=== PATIENT | male | born 1975 | race American Indian/Alaskan Native ===

== ENCOUNTER 2018-11-07 12:20 | Inpatient (IN) | payer MEDICAID ==
[2018-11-07 13:52] LABS: BASO % 0.7 % (0.0-2.0); EOS % 0.6 % (0.0-4.0); HEMOGLOBIN 13.7 g/dL (12.0-18.0); LYMPH # 1.2 K/uL (1.0-4.3); LYMPH % 16.9 % (20.0-40.0); MEAN CELL VOLUME 87.7 fL (80.0-94.0); MEAN CORPUSCULAR HEMOGLOBIN 28.8 pg (27.0-31.0); MEAN CORPUSCULAR HGB CONC 32.9 g/dL (33.0-37.0); MEAN PLATELET VOLUME 8.2 fL (7.2-11.7); MONO # 0.3 K/uL (0.0-0.8); MONO % 4.6 % (0.0-10.0); NEUT # 5.6 K/uL (1.8-7.0); NEUT % 77.2 % (50.0-75.0); NRBC % 0.1 % (0.0-2.0); RBC 4.77 Mil/uL (4.40-5.90); RED CELL DISTRIBUTION WIDTH 14.4 % (11.5-14.5); WHITE BLOOD COUNT 7.3 K/uL (4.8-10.8)
[2018-11-07 13:56] LABS: SQUAMOUS EPITHIAL < 1 /hpf (0-5); URINE BILIRUBIN NEGATIVE (NEGATIVE); URINE BLOOD NEGATIVE (NEGATIVE); URINE CLARITY Clear (Clear); URINE COLOR Amber (YELLOW); URINE GLUCOSE (UA) NORMAL (Normal); URINE LEUKOCYTE ESTERASE NEG Leu/uL (Negative); URINE PROTEIN 2+ mg/dL (NEGATIVE)
[2018-11-07 14:09] LABS: ALB/GLOB RATIO 1.3 (1.0-2.1); ALBUMIN 4.4 g/dL (3.5-5.0); ALT/SGPT 46 U/L (21-72); AST/SGOT 43 U/L (17-59); BLOOD UREA NITROGEN 22 mg/dL (9-20); CALCIUM 9.1 mg/dl (8.6-10.4); GFR NON-AFRICAN AMERICAN 55
[2018-11-07 14:18] LABS: CK-MB 2.65 ng/mL (0.0-3.38)
[2018-11-07 14:22] LABS: BARBITURATES, UR NEGATIVE (NEGATIVE); BENZODIAZEPINES, UR NEGATIVE (NEGATIVE); PHENCYCLIDINE, UR NEGATIVE (NEGATIVE)
[2018-11-07 14:24] LABS: OPIATES, UR POSITIVE (NEGATIVE)
--- NOTE | 2018-11-07 14:35 | C.PDOC ---
History Of Present Illness 43 y/o male presents to the ED for psychiatric evaluation secondary to having suicidal ideation. Patient reports hearing voices that are telling him to kill himself. He denies any suicidal plan or homicidal ideation. Patient also com plains of right shoulder pain, which is non-radiating and intermittent. Pain worse with movement of right arm. He denies any nausea, vomiting, diaphoresis, SOB, or dizziness. Time Seen by Provider: 11/07/18 13:12 Chief Complaint (Nursing): Chest Pain History Per: Patient History/Exam Limitations: no limitations Onset/Duration Of Symptoms: Days Current Symptoms Are (Timing): Still Present Past Medical History Reviewed: Historical Data, Nursing Documentation, Vital Signs Vital Signs: Last Vital Signs Temp 98.6 F 11/07/18 12:38 Pulse 77 11/07/18 12:38 Resp 17 11/07/18 12:38 BP 174/110 H 11/07/18 12:38 Pulse Ox 98 11/07/18 12:38 - Medical History PMH: Depression, HTN Family History: States: No Known Family Hx - Social History Hx Alcohol Use: No Hx Substance Use: Yes - Immunization History Hx Tetanus Toxoid Vaccination: No Hx Influenza Vaccination: No Hx Pneumococcal Vaccination: No Review Of Systems Except As Marked, All Systems Reviewed And Found Negative. Constitutional: Negative for: Fever, Chills, Sweats Eyes: Negative for: Vision Change Cardiovascular: Negative for: Chest Pain Respiratory: Negative for: Shortness of Breath, SOB with Excertion Gastrointestinal: Negative for: Nausea, Vomiting, Abdominal Pain Musculoskeletal: Positive for: Shoulder Pain (right anterior) Neurological: Negative for: Weakness, Numbness, Dizziness Psych: Positive for: Suicidal ideation (without plan,no homicidal ideation), Other (Auditory hallucinations) Physical Exam - Physical Exam Additional Physical Exam Comments: Constitutional: No acute distress. Head: Normocephalic. Atraumatic. Eyes: PERRL. ENT: Moist mucous membranes. Neck: Supple. Cardiovascular: Regular rate. Radial pulse 2+ bilaterally. Respiratory: Clear to auscultation bilaterally. GI: Soft. Nontender. Nondistended. Back: No CVA tenderness. Musculoskeletal: Anterior right shoulder tenderness, with reproducible pain on active and passive ROM of right arm. Skin: No rash. Neurologic: Alert, no focal deficit. ED Course And Treatment - Laboratory Results Result Diagrams: 11/07/18 13:45 11/07/18 13:45 ECG: Interpreted By Me, Viewed By Me ECG Rhythm: Sinus Rhythm Interpretation Of ECG: lateral T wave inversions, no ST elevations Rate From EC O2 Sat by Pulse Oximetry: 98 (RA) Pulse Ox Interpretation: Normal - Other Rad CXR X-Ray: Read By Radiologist Interpretation: Accession No. : [id number]. Patient Name / ID : TORIE MCARTHUR / [id number]. Exam Date : 11/07/2018 13:59:00 ( Approved ). Study Comment : Sex / Age : M / 43Y. Creator : Christianne Richards MD. Dictator : Christianne Richards MD. District Fire Management Officer : Assistant Professor Of Mathematics : Christianne Richards MD. Approver2 : Report Date : 11/07/2018 14:52:16. My Comment : . HISTORY: psych. COMPARISON: None available. TECHNIQUE: Chest PA and lateral. FINDINGS: Examination limited by habitus. LUNGS: No focal consolidation. Please note that chest x-ray has limited sensitivity for the detection of pulmonary masses. PLEURA: No significant pleural effusion identified. No definite pneumothorax . CARDIOVASCULAR: Cardiomegaly. Ectatic aorta. No atherosclerotic calcification present. OSSEOUS STRUCTURES: No acute osseous abnormality identified. VISUALIZED UPPER ABDOMEN: Unremarkable. OTHER FINDINGS: None. IMPRESSION: No focal consolidation identified. Findings as above. Right shoulder x-ray X-Ray: Read By Radiologist Interpretation: Accession No. : [id number]. Patient Name / ID : TORIE MCARTHUR / [id number]. Exam Date : 11/07/2018 14:04:06 ( Approved ). Study Comment : Sex / Age : M / 43Y. Creator : Marii Menendez V. Dictator : Marii Menendez V. District Fire Management Officer : Assistant Professor Of Mathematics : Dr. Joann Stephens Marii V. Approver2 : Report Date : 11/07/2018 15:05:25. My Comment : . Date of service: 11/07/2018. PROCEDURE: Radiographs of the Right Shoulder. HISTORY: R shoulder pain. COMPARISON: No prior. FINDINGS: BONES: No definitive fracture seen. The appearance to the inferior glenoid rim probably relates to artifact. JOINTS: No significant appearing glenohumeral or acromioclavicular joint arthrosis seen. Projection somewhat limited. SOFT TISSUES: Normal. OTHER FINDINGS: None. IMPRESSION: No suspect fracture. No dislocation. No definitive arthrosis noted. Medical Decision Making Medical Decision Making: Initial Plan: --Blood work --UA --Right shoulder x-ray --Chest x-ray --Placed on 1:1 observation --Awaiting crisis eval Disposition - Disposition Disposition: HOSPITALIZED Disposition Time: 15:20 Condition: FAIR - Clinical Impression Clinical Impression: Schizoaffective disorder - Scribe Statement The provider has reviewed the documentation as recorded by the Scribe Ngoc Ding Provider Attestation: All medical record entries made by the Scribe were at my direction and personally dictated by me. I have reviewed the chart and agree that the record accurately reflects my personal performance of the history, physical exam, medical decision making, and the department course for this patient. I have also personally directed, reviewed, and agree with the discharge instructions and disposition.
--- NOTE | 2018-11-07 14:56 | RAD ---
HISTORY: psych COMPARISON: None available. TECHNIQUE: Chest PA and lateral FINDINGS: Examination limited by habitus. LUNGS: No focal consolidation. Please note that chest x-ray has limited sensitivity for the detection of pulmonary masses. PLEURA: No significant pleural effusion identified. No definite pneumothorax . CARDIOVASCULAR: Cardiomegaly. Ectatic aorta. No atherosclerotic calcification present. OSSEOUS STRUCTURES: No acute osseous abnormality identified. VISUALIZED UPPER ABDOMEN: Unremarkable. OTHER FINDINGS: None. IMPRESSION: No focal consolidation identified. Findings as above.
--- NOTE | 2018-11-07 15:09 | RAD ---
Date of service: 11/07/2018 PROCEDURE: Radiographs of the Right Shoulder HISTORY: R shoulder pain COMPARISON: No prior. FINDINGS: BONES: No definitive fracture seen. The appearance to the inferior glenoid rim probably relates to artifact JOINTS: No significant appearing glenohumeral or acromioclavicular joint arthrosis seen. Projection somewhat limited. SOFT TISSUES: Normal. OTHER FINDINGS: None. IMPRESSION: No suspect fracture. No dislocation. No definitive arthrosis noted.
--- NOTE | 2018-11-08 07:13 | CARD ---
APPROVED REPORT Date of service: 11/07/2018 EKG Measurement Heart [id number] CT [id number] <Conclusion> Normal sinus rhythm Possible Left atrial enlargement Left ventricular hypertrophy T wave abnormality, consider lateral ischemia Abnormal ECG
[2018-11-08] MEDS ORDERED: Aluminum Hydroxide/Magnesium Hydroxide Susp (30 mL) PO PRN (10:33)
--- NOTE | 2018-11-08 10:33 | PCM.PSYCH ---
Initial Psychiatric Evaluation - Initial Psychiatric Evaluation Type of Admission: Voluntary Legal Status: Capacity Chief Complaint (in patient's own words): Was feeling depressed and suicidal..' History of Present Illness and Precipitating Events: This is a 43 years old -[place] male, who came to the ED with depressed mood and suicidal ideation with plan to jump in front of the train. Patient reports history of few inpatient psychiatric hospitalizations, he was last discharged from [facility] last year. As per the patient soon after discharge he stopped taking medication and relapsed on heroin. He reports of sniffing almost 10 bags of heroin daily along with 2-3 bags of cocaine. Patient reports that yesterday he became increasingly depressed and suicidal ideation so he came to the hospital to get help. He reports depressed mood, feelings of hopelessness and helplessness, poor sleep and poor appetite. He also reports at times irritability and agitation but denies any manic symptoms. He reports withdrawal symptoms including nausea, headaches, cramps, joint pains, sweating and anxiety. He also reports of hearing voices or hallucinations command type to kill himself and reports paranoia. Past medical history HTN Current Medications: Active Medications Generic Name Dose Route Start Last Admin Trade Name Freq PRN Reason Stop Dose Admin Clonidine HCl 0.1 mg 11/07/18 21:17 11/08/18 06:45 Catapres PO 0.1 mg Q6 PRN Administration Systolic Blood Pressure Pneumococcal Polyvalent Vaccine 0.5 ml 11/09/18 10:00 Pneumovax 23 Vaccine IM 11/09/18 10:01 .ONCE ONE Past Psychiatric History - Past Psychiatric History Previous Treatment History: Inpatient Pertinent Medical Hx (Current Medical&Sleep Prob, Allergies): Allergies Allergy/AdvReac Type Severity Reaction Status Date / Time No Known Allergies Allergy Unverified 11/07/18 12:43 Lisinopril [Zestril] 10 mg PO DAILY 11/07/18 amLODIPine [Norvasc] 10 mg PO DAILY 11/07/18 Review of Systems - Review of Systems All systems: reviewed and no additional remarkable complaints except - Psychiatric Psychiatric: Anxiety, Auditory Hallucinations, Irritability, Mood Swings, Suicidal Ideation Mental Status Examination - Personal Presentation Personal Presentation: Looks stated age - Affect Affect: Constricted, Depressed - Motor Activity Motor Activity: Calm - Reliability in Providing Information Reliability in Providing Information: Fair - Speech Speech: Organized - Mood Mood: Depressed, Anxious - Formal Thought Process Formal Thought Process: Hallucinations, Delusions - Hallucinations/Delusions Hallucinations: Auditory Delusions: Persecution - Obsessions/Compulsions Obsessions: No Compulsions: No - Cognitive Functions Orientation: Person, Place, Situation, Time Sensorium: Alert Attention/Concentration: Attentive Abstract Thinking: [place] Estimate of Intelligence: Below average Judgement: Imparied, as evidence by: Poor judgement, Imparied, as evidence by: Lack of insight into illness - Risk Risk: Suicidal, Withdrawal, Diminished functioning - Limitations Limitations: Living alone DSM 5 DX - DSM 5 DSM 5 Diagnosis: Bipolar depressed severe with psychotic symptoms Opioid use disorder severe Opiate withdrawal Cocaine use disorder severe - Recommended/Plan of Treatment Treatment Recommendations and Plan of Treatment: Bipolar depressed severe with psychotic symptoms Opioid use disorder severe Opiate withdrawal Cocaine use disorder severe CBT Psychoeducation Supportive therapy and group therapy Methadone taper Trazodone 50 mg p.o. nightly Hydroxyzine 25 g p.o. every 6 hours as needed Cymbalta 20 g daily
--- NOTE | 2018-11-08 15:21 | PCM.BM ---
<Jericho Dunlap - Last Filed: 11/08/18 15:18> Treatment Plan Problems - Problems identified on initial assessmt Auditory hallucinations Date Initiated: 11/07/18 Time Initiated: 19:00 Assessment reference: NA Status: Active Subtance Abuse Date Initiated: 11/07/18 Time Initiated: 19:00 Assessment reference: NA Status: Active Treatment assets and liabiliti Patient Assests: educated, self-reliant, ADL independent, negotiates basic needs, cognitively intact Patient Liabilities: financial problems (Unemployed), substance abuse (Heroin Abuse), medical problems (Hypertension) - Milieu Protocol Maintain good personal hygiene: daily Encourage regular showers, daily Remind patient to perform daily oral care, every shift Assist patient to perform ADL's Conduct patient checks and document Observation sheet: Q15 minutes (For safety) Maintain personal safety: every shift Educate patient to report safety concerns to staff, every shift Monitor environment for contraband/sharps Medication safety: Monitor for expected outcome, potential side effects: every shift, Assess barriers to learning: every shift, Assess readiness for medication education: every shift <Jill Damico - Last Filed: 11/08/18 15:31> Family Contact Family involvement: Famliy/SO not involved - Goals for Treatment Patient goals for treatment: "I want to go to outpatient." Discharge/Continuing Care - Education Needs Education Needs: Patient Medication, Patient Coping Skills - Discharge Discharge Criteria: Tolerates medication w/o severe side effects, Reduction of target symptoms Discharge to:: Home - Treatment Team Participation Discussed with Family/SO: No Was Patient/Family/SO present at Treatment Team Meeting: Yes
--- NOTE | 2018-11-09 08:21 | PCM.PYCHPN ---
Mental Status Examination - Cognitive Function Orientation: Person, Place, Situation, Time - Mood Mood: Depressed, Anxious - Affect Affect: Constricted, Depressed - Formal Thought Process Formal Thought Process: Hallucinations, Delusions - Homicidal Ideation Homicidal Ideation: No Goal/Treatment Plan - Goal/Treatment Plan Progress Toward Problem(s) and Goals/Treatment Plan: Bipolar depressed severe with psychotic region Opioid use disorder severe Opiate withdrawal Cocaine use disorder severe CBT Psychoeducation Supportive therapy and group therapy Methadone taper Trazodone 50 mg p.o. nightly Hydroxyzine 25 g p.o. every 6 hours as needed Cymbalta 20 g daily
[2018-11-09] MEDS ORDERED: Pneumococcal 23-Valent Vaccine IM ONE (10:00)
[2018-11-10 06:42] VITALS: O2SAT 97
[2018-11-11] MEDS ORDERED: Influenza Vaccine 60 MCG/0.5 ML SYR (3 yr & up) IM ONE (10:00)
--- NOTE | 2018-11-13 00:01 | PCM.PYCHPN ---
Psychiatric Progress Note - Psychiatric Progress Note Patient seen today, length of contact: 15 min Patient Chief Complaint: I am still feeling down.' Problems Identified/Issues Discussed: Patient was seen and evaluated, chart reviewed and discussed with the staff. Patient still reports depressed mood and at times feelings of hopelessness and helplessness. He still reports poor sleep and appetite. He reports withdrawal symptoms including sweating, cramps, headaches and nausea. He reports some improvement in his paranoia. He is taking medication but denies any side effects. Supportive therapy was given Medication Change: Yes Medical Record Reviewed: Yes Mental Status Examination - Cognitive Function Orientation: Person, Place, Situation, Time Memory: Intact Attention: WNL Concentration: Poor Association: WNL Fund of Knowledge: Poor - Mood Mood: Depressed, Anxious - Affect Affect: Constricted, Depressed - Speech Speech: Soft - Formal Thought Process Formal Thought Process: Hallucinations, Delusions - Suicidal Ideation Suicidal Ideation: No - Homicidal Ideation Homicidal Ideation: No Goal/Treatment Plan - Goal/Treatment Plan Need for Continued Stay: Severe functional impairment Progress Toward Problem(s) and Goals/Treatment Plan: Bipolar depressed severe with psychotic symptoms Opioid use disorder severe Opiate withdrawal Cocaine use disorder severe CBT Psychoeducation Supportive therapy and group therapy Methadone taper Trazodone 50 mg p.o. nightly Hydroxyzine 25 g p.o. every 6 hours as needed Cymbalta 20 g daily - Smoking Cessation Smoking Cessation Initiated: No
[2018-11-13 06:51] VITALS: RESP 18; TEMP 97.6
[2018-11-14 06:37] VITALS: BP 152/93; PULSE 65
--- NOTE | 2018-11-14 13:27 | PCM.PYCHDC ---
Mental Status Examination - Mental Status Examination Orientation: Person, Place, Situation, Time Memory: Intact Mood: Neutral Affect: Constricted Speech: Soft Attention: WNL Concentration: WNL Association: WNL Fund of Knowledge: WNL Formal Thought Process: No Impairment Description of patient's judgement and insight: good, fair Psychotic Thoughts and Behaviors: denies any AVH Suicidal Ideation: No Current Homicidal Ideation?: No Discharge Summary - Discharge Note Reason for Hospitalization: This is a 43 years old -[place] male, who came to the ED with depressed mood and suicidal ideation with plan to jump in front of the train. Patient reports history of few inpatient psychiatric hospitalizations, he was last discharged from [facility] last year. As per the patient soon after discharge he stopped taking medication and relapsed on heroin. He reports of sniffing almost 10 bags of heroin daily along with 2-3 bags of cocaine. Patient reports that yesterday he became increasingly depressed and suicidal ideation so he came to the hospital to get help. He reports depressed mood, feelings of hopelessness and helplessness, poor sleep and poor appetite. He also reports at times irritability and agitation but denies any manic symptoms. He reports withdrawal symptoms including nausea, headaches, cramps, joint pains, sweating and anxiety. He also reports of hearing voices or hallucinations command type to kill himself and reports paranoia. Consultations:: List each consultation separately and include: 1. Reason for request. 2. Findings. 3. Follow-up Summary of Hospital Course include:: 1. Description of specific treatment plan utilized for patients during their course of treatmen. 2. Summarize the time- course for resolution of acute symptoms and/or regressed behaviors. 3. Describe issues identified and worked on during hospitalization. 4. Describe medication utilized. 5. Describe medical problems identified and treated. 6. Reassessment of suicide risk Summary of Hospital Course: This is a 43 years old -[place] male, who came to the ED with depressed mood and suicidal ideation with plan to jump in front of the train. Patient reports history of few inpatient psychiatric hospitalizations, he was last discharged from [facility] last year. As per the patient soon after discharge he stopped taking medication and relapsed on heroin. He reports of sniffing almost 10 bags of heroin daily along with 2-3 bags of cocaine. Patient reports that yesterday he became increasingly depressed and suicidal ideation so he came to the hospital to get help. He reports depressed mood, feelings of hopelessness and helplessness, poor sleep and poor appetite. He also reports at times irritability and agitation but denies any manic symptoms. He reports withdrawal symptoms including nausea, headaches, cramps, joint pains, sweating and anxiety. He also reports of hearing voices or hallucinations command type to kill himself and reports paranoia. Past medical history HTN - Final Diagnosis (DSM 5) Condition upon Discharge: FAIR Disposition: HOME/ ROUTINE Follow-up Treatment Plan: Bipolar depressed severe with psychotic symptoms Opioid use disorder severe Opiate withdrawal Cocaine use disorder severe CBT Psychoeducation Supportive therapy and group therapy Methadone taper Trazodone 50 mg p.o. nightly Hydroxyzine 25 g p.o. every 6 hours as needed Cymbalta 20 g daily Prescriptions/Medication Reconciliation: DULoxetine [Cymbalta] 60 mg PO DAILY #30 ecc fluPHENAZine [Prolixin] 5 mg PO BID #60 tab traZODone [Desyrel] 100 mg PO HS PRN #30 tab PRN Reason: Insomnia
== END 2018-11-14 14:15 | disposition home or self-care (01) | DRG 430 ==
LOC: C.ER 12:20 → C.5E 18:16
PROVIDERS: ADMIT Psychiatry & Neurology Psychiatry; ATTEND Psychiatry & Neurology Psychiatry
PROC: GZHZZZZ Group Psychotherapy (ICD-10-PCS; principal; 2018-11-07)
PROC: GZ56ZZZ Individual Psychotherapy, Supportive (ICD-10-PCS; 2018-11-07)
DX: F31.5 Bipolar disorder, current episode depressed, severe, with psychotic features (principal); F11.23 Opioid dependence with withdrawal; F41.9 Anxiety disorder, unspecified; I11.9 Hypertensive heart disease without heart failure; I51.7 Cardiomegaly; R45.851 Suicidal ideations; I77.819 Aortic ectasia, unspecified site

== ENCOUNTER 2019-04-05 02:24 | Observation (INO) | payer MEDICAID ==
--- NOTE | 2019-04-05 03:09 | C.PDOC ---
History Of Present Illness 43 year old male presents to the ED c/o new onset chest pain associated with headache and left periorbital pain that started today at 21:00. Patient currently taking 3 HTN medications, missed his dose yesterday. Patient reports using heroin and cocaine abuse, his last use was around 19L00. Patient denies fever, chills, nausea, vomit, SOB. Patient reports history of TIA one year ago with no residual deficit. NEW ONSET CP SINCE 2099. CONSTANT LOCALIZED. +ASSOC DOWNING, L PERIORB PAIN. ON 3 HTN MEDS, COMPLIANT. MISSED DOSE YEST. +HEROIN AND COCAINE ABUSE, LAST USE AROUND 1900. NO SOB, [place]. HO TIA 1 YR AGO, DENIES RESIDUAL DEFICIT EXAM MILD DIST NONTOXIC 'HEENT ATRAUM LUNGS CTA B/L NO W/R/R CV RRR ABD NEG NEURO NO FOCAL DEF SEE [facility] PSYCH CALM COOPERATIVE +MILD NARCOTIC INTOX NO ACTIVE PSYCHOSIS WARM DRY REMAINDER NEG MDM CP, DOWNING HO DRUG ABUSE, HTN. BP SIM TO PRIOR FROM PREV ADMISSION. CT, LABS, Time Seen by Provider: 04/05/19 02:50 Chief Complaint (Nursing): Chest Pain History Per: Patient History/Exam Limitations: no limitations Onset/Duration Of Symptoms: Hrs (21:00) Current Symptoms Are (Timing): Still Present Quality: "Pain" Recent travel outside of the [place]: No Additional History Per: Patient Past Medical History Reviewed: Historical Data, Nursing Documentation, Vital Signs Vital Signs: Last Vital Signs Temp 98.6 F 04/05/19 02:39 Pulse 101 H 04/05/19 02:39 Resp 18 04/05/19 02:39 BP 199/119 H 04/05/19 02:39 Pulse Ox 96 04/05/19 02:39 Primary Care Provider: Non [facility] Provider, - Medical History PMH: Depression, HTN Denies: Chronic Kidney Disease Surgical History: No Surg Hx - [facility] Procedures GROUP PSYCHOTHERAPY (11/07/18) INDIVIDUAL PSYCHOTHERAPY, SUPPORTIVE (11/07/18) Family History: States: Unknown Family Hx - Social History Hx Alcohol Use: No Hx Substance Use: Yes - Immunization History Hx Tetanus Toxoid Vaccination: No Hx Influenza Vaccination: No Hx Pneumococcal Vaccination: No Review Of Systems Constitutional: Negative for: Fever, Chills Eyes: Negative for: Vision Change Cardiovascular: Positive for: Chest Pain. Negative for: Palpitations Respiratory: Negative for: Shortness of Breath Gastrointestinal: Negative for: Nausea, Vomiting, Abdominal Pain Skin: Negative for: Rash Neurological: Positive for: Headache. Negative for: Weakness, Numbness, Dizziness Physical Exam - Physical Exam Appears: Non-toxic, In Acute Distress Skin: Normal Color, Warm, Dry Head: Atraumatic, Normacephalic Eye(s): bilateral: Normal Inspection, PERRL, EOMI Oral Mucosa: Moist Neck: Normal ROM, No Midline Cervical Tenderness, Supple Chest: Symmetrical Cardiovascular: Rhythm Regular Respiratory: Normal Breath Sounds, No Rales, No Rhonchi, No Wheezing Gastrointestinal/Abdominal: Soft, No Tenderness, No Guarding, No Rebound Extremity: Bilateral: Atraumatic, Normal Color And Temperature, Normal ROM Neurological/Psych: Oriented x3, Other (No focal deficit, see NIH. Psych calm, cooperative. (+) mild narcotic intox, no active psychosis) Gait: Steady ED Course And Treatment - Laboratory Results Result Diagrams: 04/05/19 03:33 04/05/19 03:33 ECG: Interpreted By Me ECG Rhythm: Sinus Rhythm ECG Interpretation: No Changes From Prior Interpretation Of ECG: TWI I, AVL, V5-6 [facility] PRIOR Rate From EC O2 Sat by Pulse Oximetry: 96 (ON RA) Pulse Ox Interpretation: Normal NIHSS Stroke Scale - Date/Time Evaluation Performed Date Performed: 04/05/19 Time Performed: 03:10 When Was NIHSS Performed: Baseline - How Severe is the Stoke Level of Consciousness: 1=Drowsy LOC to Questions: 0=Both comments correct LOC to commands: 0=Obeys both correctly Best Gaze: 0=Normal Visual: 0=No visual loss Facial: 0=Normal Motor Arm - Left: 0=No drift Motor Arm - Right: 0=No drift Motor Leg - Left: 0=No drift Motor Leg - Right: 0=No drift Limb Ataxia: 0=Absent Sensory: 0=Normal Best Language: 0=No aphasia Dysarthia: 0=Normal articulation Extinction & Inattention (Neglect): 0=Normal, no object Score: 1 Progress - Re-Evaluation Re-evaluation Note: 04/05/19 05:21 SLEEPING NAD ASYMPT. 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 - Data Reviewed Data Reviewed: Lab, Diagnostic imaging, EKG, Old records rTPA Inclusion/Exclusion - Refusal of Treatment Patient Refused Treatment: No - Inclusion Criteria for Altepase All of the below criteria for inclusion were reviewed: Yes Patient is 18 years or Older: Yes The Clinical Diagnosis of Ischemic Stroke That is Causing a Potentially Disablin g Neurological Deficit: Yes Time of Onset is Well Established to be Less Than 270 Minute Before Treatment Would Begin: Yes Risk/Benefit Discussed With Patient/Family Member Present: Yes - Exclusion Criteria for Altepase Current Intracranial Hemorrhage: No Subarachnoid hemorrhage: No Active Internal Bleeding: No Recent (within 3 months) Intracranial or Intraspinal Surgery: No Presence of intracranial conditions that may increase the risk of bleeding: Not Applicable Bleeding Diathesis Including but not limited to: None Current Severe Uncontrolled Hypertension: No - Warning to TPA With Conditions Following Conditions Weighed Against Anticipated Benefit: No Medical Decision Making Medical Decision Making: Plan: * CT head * EKG * Labs * Aspirin 325 mg PO * Nitro 0.4 mg SL * Trandate 10 mg IVP MDM CP, DOWNING HO DRUG ABUSE, HTN. BP SIM TO PRIOR FROM PREV ADMISSION. CT, LABS, Disposition Counseled Patient/Family Regarding: Studies Performed, Diagnosis - Disposition Disposition: HOSPITALIZED Disposition Time: 05:21 Condition: STABLE Forms: [place] (French) - POA Present On Arrival: None - Clinical Impression Clinical Impression: Chest pain, Polysubstance abuse, Headache - Scribe Statement The provider has reviewed the documentation as recorded by the Scribe Subhash Owen All medical record entries made by the Scribe were at my direction and personally dictated by me. I have reviewed the chart and agree that the record accurately reflects my personal performance of the history, physical exam, medical decision making, and the department course for this patient. I have also personally directed, reviewed, and agree with the discharge instructions and disposition.
[2019-04-05] MEDS ORDERED: Aspirin 325 mg EC Tablets PO STA (03:12)
[2019-04-05] MEDS ORDERED: Labetalol 25mg/5ml Syringe IVP STA (03:14)
[2019-04-05 03:51] LABS: ALB/GLOB RATIO 1.3 (1.0-2.1); ALBUMIN 4.1 g/dL (3.5-5.0); ALT/SGPT 55 U/L (21-72); AST/SGOT 61 U/L (17-59); BLOOD UREA NITROGEN 28 mg/dL (9-20); GFR NON-AFRICAN AMERICAN 51
[2019-04-05 03:53] LABS: BARBITURATES, UR NEGATIVE (NEGATIVE); BENZODIAZEPINES, UR NEGATIVE (NEGATIVE); OPIATES, UR POSITIVE (NEGATIVE); PHENCYCLIDINE, UR NEGATIVE (NEGATIVE)
[2019-04-05] MEDS ORDERED: Labetalol 5mg/ml (4ml) ONE (03:56)
[2019-04-05] MEDS ORDERED: Aspirin 325 mg EC Tablets PO ONE (03:56)
[2019-04-05 04:00] LABS: BASO # 0.1 K/uL (0.0-0.2); BASO % 1.2 % (0.0-2.0); EOS % 0.6 % (0.0-4.0); HEMOGLOBIN 13.5 g/dL (12.0-18.0); LYMPH # 1.4 K/uL (1.0-4.3); LYMPH % 23.5 % (20.0-40.0); MEAN CELL VOLUME 88.1 fL (80.0-94.0); MEAN CORPUSCULAR HEMOGLOBIN 29.2 pg (27.0-31.0); MEAN CORPUSCULAR HGB CONC 33.1 g/dL (33.0-37.0); MEAN PLATELET VOLUME 7.8 fL (7.2-11.7); MONO # 0.5 K/uL (0.0-0.8); MONO % 8.2 % (0.0-10.0); NEUT # 4.1 K/uL (1.8-7.0); NEUT % 66.5 % (50.0-75.0); RBC 4.63 Mil/uL (4.40-5.90); RED CELL DISTRIBUTION WIDTH 14.1 % (11.5-14.5); WHITE BLOOD COUNT 6.1 K/uL (4.8-10.8)
[2019-04-05 06:25] VITALS: RESP 20
--- NOTE | 2019-04-05 10:31 | CT ---
Date of service: 04/05/2019 PROCEDURE: CT HEAD WITHOUT CONTRAST. HISTORY: HEADACHE HTN COMPARISON: None available. TECHNIQUE: Axial computed tomography images were obtained through the head/brain without intravenous contrast. Radiation dose: Total exam DLP = 1324.42 mGy-cm. This CT exam was performed using one or more of the following dose reduction techniques: Automated exposure control, adjustment of the mA and/or kV according to patient size, and/or use of iterative reconstruction technique. FINDINGS: HEMORRHAGE: No acute parenchymal, subarachnoid nor extra-axial hemorrhage. BRAIN: Moderate diffuse and confluent chronic white matter ischemic changes seen in the periventricular as well as deep and subcortical regions. 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 VENTRICLES: No obstructive hydrocephalus. CALVARIUM: No acute calvarial fractures. PARANASAL SINUSES: Unremarkable as visualized. No significant inflammatory changes. MASTOID AIR CELLS: Unremarkable as visualized. No inflammatory changes. OTHER FINDINGS: None. IMPRESSION: Moderate diffuse and confluent chronic white matter ischemic changes seen in the periventricular as well as deep and subcortical regions. 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
[2019-04-05] MEDS: Aspirin 325 mg EC Tablets PO SCH (10:42)
[2019-04-05] MEDS: Enoxaparin 40 mg Syringe SC SCH (10:42)
[2019-04-05 11:58] LABS: CK-MB 5.71 ng/mL (0.0-3.38); TROPONIN I 0.041 ng/mL (0.00-0.120)
--- NOTE | 2019-04-05 14:35 | RAD ---
Date of service: 04/05/2019 HISTORY: Chest pain COMPARISON: Comparison chest dated 11/07/2018 TECHNIQUE: 1 view obtained. FINDINGS: LUNGS: No active pulmonary disease. PLEURA: No significant pleural effusion identified, no pneumothorax apparent. CARDIOVASCULAR: No aortic atherosclerotic calcification present. Cardiomegaly. No pulmonary vascular congestion. OSSEOUS STRUCTURES: No significant abnormalities. VISUALIZED UPPER ABDOMEN: Normal. OTHER FINDINGS: None. IMPRESSION: Cardiomegaly. No acute infiltrates
[2019-04-05 17:36] LABS: CK-MB 4.4 ng/mL (0.0-3.38); TROPONIN I 0.034 ng/mL (0.00-0.120)
--- NOTE | 2019-04-06 06:06 | CP.PCM.HP ---
Present on Admission - Present on Admission Any Indicators Present on Admission: No Past Patient History - Infectious Disease Hx of Infectious Diseases: None - Past Social History Smoking Status: Heavy Smoker > 10 Cigarettes Daily - CARDIAC Hx Hypertension: Yes - PULMONARY Hx Respiratory Disorders: No - NEUROLOGICAL Hx Neurological Disorder: No - HEENT Hx HEENT Problems: No - RENAL Hx Chronic Kidney Disease: No - ENDOCRINE/METABOLIC Hx Endocrine Disorders: No - HEMATOLOGICAL/ONCOLOGICAL Hx Blood Disorders: No - INTEGUMENTARY Hx Dermatological Problems: No - MUSCULOSKELETAL/RHEUMATOLOGICAL Hx Musculoskeletal Disorders: No - GASTROINTESTINAL Hx Gastrointestinal Disorders: No - GENITOURINARY/GYNECOLOGICAL Hx Genitourinary Disorders: No - PSYCHIATRIC Hx Depression: Yes Hx Substance Use: Yes - SURGICAL HISTORY Hx Surgeries: No - ANESTHESIA Hx Anesthesia: No Meds Allergies/Adverse Reactions: Allergies Allergy/AdvReac Type Severity Reaction Status Date / Time No Known Allergies Allergy Unverified 04/05/19 02:42 Results - Vital Signs Recent Vital Signs: Last Vital Signs Temp 98 F 04/06/19 04:00 Pulse 54 L 04/06/19 04:00 Resp 20 04/06/19 04:00 BP 155/91 H 04/06/19 04:00 Pulse Ox 97 04/06/19 04:00 - Labs Result Diagrams: 04/05/19 03:33 04/05/19 03:33 Labs: Laboratory Results - last 24 hr 04/05/19 04/05/19 10:45 17:06 Total Creatine Kinase 466 H 374 H CK-MB (Mass) 5.71 H 4.40 H Troponin I 0.0410 0.0340
[2019-04-06 08:02] LABS: BASO % 0.6 % (0.0-2.0); EOS # 0.1 K/uL (0.0-0.7); EOS % 1.6 % (0.0-4.0); HEMOGLOBIN 14.3 g/dL (12.0-18.0); LYMPH # 1.3 K/uL (1.0-4.3); LYMPH % 31.2 % (20.0-40.0); MEAN CELL VOLUME 87.8 fL (80.0-94.0); MEAN CORPUSCULAR HEMOGLOBIN 29.7 pg (27.0-31.0); MEAN CORPUSCULAR HGB CONC 33.8 g/dL (33.0-37.0); MEAN PLATELET VOLUME 8.3 fL (7.2-11.7); MONO # 0.4 K/uL (0.0-0.8); MONO % 10.3 % (0.0-10.0); NEUT # 2.4 K/uL (1.8-7.0); NEUT % 56.3 % (50.0-75.0); NRBC % 0.2 % (0.0-2.0); RBC 4.82 Mil/uL (4.40-5.90); RED CELL DISTRIBUTION WIDTH 14.2 % (11.5-14.5); WHITE BLOOD COUNT 4.3 K/uL (4.8-10.8)
[2019-04-06 08:26] LABS: ALB/GLOB RATIO 1.2 (1.0-2.1); ALBUMIN 3.6 g/dL (3.5-5.0); ALT/SGPT 55 U/L (21-72); AST/SGOT 47 U/L (17-59); BLOOD UREA NITROGEN 22 mg/dL (9-20); CALCIUM 8.8 mg/dl (8.6-10.4); GFR NON-AFRICAN AMERICAN 55
--- NOTE | 2019-04-06 09:34 | CP.PCM.CON ---
History of Present Illness - History of Present Illness History of Present Illness: 43 M admitted with chest pain Stress test and ECHO Sunday 43 year old male presents to the ED c/o new onset chest pain associated with headache and left periorbital pain that started today at 21:00. Patient currently taking 3 HTN medications, missed his dose yesterday. Patient reports using heroin and cocaine abuse, his last use was around 19L00. Patient denies fever, chills, nausea, vomit, SOB. Patient reports history of TIA one year ago with no residual deficit. Chief Complaint (Nursing): Chest Pain History Per: Patient History/Exam Limitations: no limitations Onset/Duration Of Symptoms: Hrs (21:00) Current Symptoms Are (Timing): Still Present Quality: "Pain" Recent travel outside of the [place]: No Additional History Per: Patient Past Medical History Reviewed: Historical Data, Nursing Documentation, Vital Signs Vital Signs: Last Vital Signs Temp 98.6 F 04/05/19 02:39 Pulse 101 H 04/05/19 02:39 Resp 18 04/05/19 02:39 BP 199/119 H 04/05/19 02:39 Pulse Ox 96 04/05/19 02:39 Primary Care Provider: Non [facility] Provider, - Medical History PMH: Depression, HTN Denies: Chronic Kidney Disease Surgical History: No Surg Hx - [facility] Procedures GROUP PSYCHOTHERAPY (11/07/18) INDIVIDUAL PSYCHOTHERAPY, SUPPORTIVE (11/07/18) Family History: States: Unknown Family Hx - Social History Hx Alcohol Use: No Hx Substance Use: Yes - Immunization History Hx Tetanus Toxoid Vaccination: No Hx Influenza Vaccination: No Hx Pneumococcal Vaccination: No Review Of Systems Constitutional: Negative for: Fever, Chills Eyes: Negative for: Vision Change Cardiovascular: Positive for: Chest Pain. Negative for: Palpitations Respiratory: Negative for: Shortness of Breath Gastrointestinal: Negative for: Nausea, Vomiting, Abdominal Pain Skin: Negative for: Rash Neurological: Positive for: Headache. Negative for: Weakness, Numbness, Dizziness Physical Exam - Physical Exam Appears: Non-toxic, In Acute Distress Skin: Normal Color, Warm, Dry Head: Atraumatic, Normacephalic Eye(s): bilateral: Normal Inspection, PERRL, EOMI Oral Mucosa: Moist Neck: Normal ROM, No Midline Cervical Tenderness, Supple Chest: Symmetrical Cardiovascular: Rhythm Regular Respiratory: Normal Breath Sounds, No Rales, No Rhonchi, No Wheezing Gastrointestinal/Abdominal: Soft, No Tenderness, No Guarding, No Rebound Extremity: Bilateral: Atraumatic, Normal Color And Temperature, Normal ROM Neurological/Psych: Oriented x3, Other (No focal deficit, see NIH. Psych calm, cooperative. (+) mild narcotic intox, no active psychosis) Gait: Steady Past Patient History - Infectious Disease Hx of Infectious Diseases: None - Past Social History Smoking Status: Heavy Smoker > 10 Cigarettes Daily - CARDIAC Hx Hypertension: Yes - PULMONARY Hx Respiratory Disorders: No - NEUROLOGICAL Hx Neurological Disorder: No - HEENT Hx HEENT Problems: No - RENAL Hx Chronic Kidney Disease: No - ENDOCRINE/METABOLIC Hx Endocrine Disorders: No - HEMATOLOGICAL/ONCOLOGICAL Hx Blood Disorders: No - INTEGUMENTARY Hx Dermatological Problems: No - MUSCULOSKELETAL/RHEUMATOLOGICAL Hx Musculoskeletal Disorders: No - GASTROINTESTINAL Hx Gastrointestinal Disorders: No - GENITOURINARY/GYNECOLOGICAL Hx Genitourinary Disorders: No - PSYCHIATRIC Hx Depression: Yes Hx Substance Use: Yes - SURGICAL HISTORY Hx Surgeries: No - ANESTHESIA Hx Anesthesia: No Meds Allergies/Adverse Reactions: Allergies Allergy/AdvReac Type Severity Reaction Status Date / Time No Known Allergies Allergy Unverified 04/05/19 02:42 - Medications Medications: Current Medications Amlodipine Besylate (Norvasc) 10 mg PO DAILY [facility] Last Admin: 04/05/19 10:42 Dose: 10 mg Aspirin (Ecotrin) 325 mg PO DAILY [facility] Last Admin: 04/05/19 10:42 Dose: 325 mg Duloxetine HCl (Cymbalta) 60 mg PO DAILY [facility] Last Admin: 04/05/19 10:42 Dose: 60 mg Enoxaparin Sodium (Lovenox) 40 mg SC DAILY [facility] Last Admin: 04/05/19 10:42 Dose: 40 mg Fluphenazine HCl (Prolixin) 5 mg PO BID [facility] Last Admin: 04/05/19 18:03 Dose: 5 mg Hydrochlorothiazide (Hydrodiuril) 25 mg PO DAILY [facility] Last Admin: 04/05/19 10:42 Dose: 25 mg Lorazepam (Ativan) 0.5 mg IVP Q6H PRN PRN Reason: Anxiety Last Admin: 04/05/19 21:44 Dose: 0.5 mg Rosuvastatin Calcium (Crestor) 5 mg PO [facility] Last Admin: 04/05/19 21:43 Dose: 5 mg Trazodone HCl (Desyrel) 100 mg PO HS PRN PRN Reason: Insomnia Last Admin: 04/05/19 21:43 Dose: 100 mg Results - Vital Signs Recent Vital Signs: Last Vital Signs Temp 98.4 F 04/06/19 07:23 Pulse 58 L 04/06/19 08:00 Resp 20 04/06/19 07:23 BP 181/95 H 04/06/19 07:23 Pulse Ox 98 04/06/19 08:00 - Labs Result Diagrams: 04/06/19 07:54 04/06/19 07:55 Labs: Laboratory Results - last 24 hr 04/05/19 04/05/19 04/06/19 10:45 17:06 07:54 WBC 4.3 L RBC 4.82 Hgb 14.3 Hct 42.4 MCV 87.8 MCH 29.7 MCHC 33.8 RDW 14.2 Plt Count 223 MPV 8.3 Neut % (Auto) 56.3 Lymph % (Auto) 31.2 Loving % (Auto) 10.3 H Eos % (Auto) 1.6 Baso % (Auto) 0.6 Neut # (Auto) 2.4 Lymph # (Auto) 1.3 Loving # (Auto) 0.4 Eos # (Auto) 0.1 Baso # (Auto) 0.0 Sodium Potassium Chloride Carbon Dioxide Anion Gap BUN Creatinine Est GFR ( Amer) Est GFR (Non-Af Amer) Random Glucose Calcium Total Bilirubin AST ALT Alkaline Phosphatase Total Creatine Kinase 466 H 374 H CK-MB (Mass) 5.71 H 4.40 H Troponin I 0.0410 0.0340 Total Protein Albumin Globulin Albumin/Globulin Ratio 04/06/19 07:55 WBC RBC Hgb Hct MCV MCH MCHC RDW Plt Count MPV Neut % (Auto) Lymph % (Auto) Loving % (Auto) Eos % (Auto) Baso % (Auto) Neut # (Auto) Lymph # (Auto) Loving # (Auto) Eos # (Auto) Baso # (Auto) Sodium 140 Potassium 3.5 L Chloride 101 Carbon Dioxide 31 H Anion Gap 12 BUN 22 H Creatinine 1.4 Est GFR ( Amer) > 60 Est GFR (Non-Af Amer) 55 Random Glucose 97 Calcium 8.8 Total Bilirubin 0.5 AST 47 ALT 55 Alkaline Phosphatase 74 Total Creatine Kinase CK-MB (Mass) Troponin I Total Protein 6.8 Albumin 3.6 Globulin 3.1 Albumin/Globulin Ratio 1.2 Assessment & Plan - Assessment and Plan (Free Text) Assessment: Chest Pain HTN EKG and Trops non significant Check Stress test and ECHO
[2019-04-06] MEDS: Aspirin 325 mg EC Tablets PO SCH (10:00)
[2019-04-06] MEDS: Enoxaparin 40 mg Syringe SC SCH (10:01)
[2019-04-06] MEDS ORDERED: Potassium Chloride 20 mEq/15 ml LIQ UD PO ONE (12:00)
--- NOTE | 2019-04-06 17:04 | CP.PCM.PN ---
Subjective - Date & Time of Evaluation Date of Evaluation: 04/06/19 Time of Evaluation: 17:03 - Subjective Subjective: Patient seen and evaluated CP improved Review Of Systems Constitutional: Negative for: Fever, Chills Eyes: Negative for: Vision Change Cardiovascular: Positive for: Chest Pain. Negative for: Palpitations Respiratory: Negative for: Shortness of Breath Gastrointestinal: Negative for: Nausea, Vomiting, Abdominal Pain Skin: Negative for: Rash Neurological: Positive for: Headache. Negative for: Weakness, Numbness, Dizziness Physical Exam - Physical Exam Appears: Non-toxic, In Acute Distress Skin: Normal Color, Warm, Dry Head: Atraumatic, Normacephalic Eye(s): bilateral: Normal Inspection, PERRL, EOMI Oral Mucosa: Moist Neck: Normal ROM, No Midline Cervical Tenderness, Supple Chest: Symmetrical Cardiovascular: Rhythm Regular Respiratory: Normal Breath Sounds, No Rales, No Rhonchi, No Wheezing Gastrointestinal/Abdominal: Soft, No Tenderness, No Guarding, No Rebound Extremity: Bilateral: Atraumatic, Normal Color And Temperature, Normal ROM Neurological/Psych: Oriented x3, Other (No focal deficit, see NIH. Psych calm, cooperative. (+) mild narcotic intox, no active psychosis) Gait: Steady Assessment & Plan - Assessment and Plan (Free Text) Assessment: Chest Pain HTN EKG and Trops non significant Check Stress test and ECHO Objective - Vital Signs/Intake and Output Vital Signs (last 24 hours): Temp Pulse Resp BP Pulse Ox 98.4 F 70 20 181/95 H 99 04/06/19 07:23 04/06/19 15:30 04/06/19 07:23 04/06/19 07:23 04/06/19 15:30 - Medications Medications: Current Medications Amlodipine Besylate (Norvasc) 10 mg PO DAILY [facility] Last Admin: 04/06/19 09:59 Dose: 10 mg Aspirin (Ecotrin) 325 mg PO DAILY [facility] Last Admin: 04/06/19 10:00 Dose: 325 mg Duloxetine HCl (Cymbalta) 60 mg PO DAILY [facility] Last Admin: 04/06/19 09:59 Dose: 60 mg Enoxaparin Sodium (Lovenox) 40 mg SC DAILY [facility] Last Admin: 04/06/19 10:01 Dose: Not Given Fluphenazine HCl (Prolixin) 5 mg PO BID [facility] Last Admin: 04/06/19 10:00 Dose: 5 mg Hydrochlorothiazide (Hydrodiuril) 25 mg PO DAILY [facility] Last Admin: 04/06/19 09:59 Dose: 25 mg Lorazepam (Ativan) 0.5 mg IVP Q6H PRN PRN Reason: Anxiety Last Admin: 04/05/19 21:44 Dose: 0.5 mg Rosuvastatin Calcium (Crestor) 5 mg PO HS [facility] Last Admin: 04/05/19 21:43 Dose: 5 mg Trazodone HCl (Desyrel) 100 mg PO HS PRN PRN Reason: Insomnia Last Admin: 04/05/19 21:43 Dose: 100 mg - Labs Labs: 04/06/19 07:54 04/06/19 07:55
[2019-04-06 22:43] VITALS: O2SAT 97
--- NOTE | 2019-04-07 00:33 | HP ---
CHIEF COMPLAINT: Chest pain. HISTORY OF PRESENT ILLNESS: This is a 43-year-old male with history of hypertension, smoking, alcoholism, and hyperlipidemia, who is a drug abuser. He uses cocaine and heroin. The patient is supposed to be on multiple blood pressure medications. He is noncompliant with his diet, medication, and followup. Today, prior to the admission and on the day of admission, he did have cocaine. The patient complained of left precordial chest pain, headache, and dizziness associated with diaphoresis. He denies any dyspnea. He is coughing. He is wheezing. He denies any fevers, chills, or rigors. He denies any history of seizure-like activity. He denies any history of trauma or fall. He also has some left periorbital pain. The patient denies any abdominal pain, nausea, vomiting, or diarrhea. He denies any history of polyuria, polydipsia, or polyphagia. He denies any history of hematuria or pyuria. He denies any history of sneezing, itchy eyes, or itchy nose. PAST MEDICAL HISTORY: Positive for hypertension, polysubstance abuse, depression, and anxiety. SOCIAL HISTORY: He is a smoker. He is alcoholic and he uses multiple street drugs. He does not work. FAMILY HISTORY: Negative for premature coronary artery disease. CURRENT MEDICATIONS: He is on trazodone, hydrochlorothiazide, , Norvasc, Zestril, and Cymbalta. PHYSICAL EXAMINATION: GENERAL: A middle-aged male in no acute distress. VITAL SIGNS: Blood pressure 161/80, pulse 59, respiratory rate 20, and temperature 97. SKIN: No rashes. No bruises. No purpura. HEENT: Atraumatic, normocephalic. Negative pallor. Negative jaundice. Extraocular movements are intact. NECK: Supple. No JVD. No lymph nodes. No thyromegaly. CHEST WALL: Bilateral symmetrical expansion. No deformity. LUNGS: Bilateral scattered rales and rhonchi. CARDIOVASCULAR: S1 and S2 plus S3 positive. ABDOMEN: Soft, nontender. Bowel sounds are positive. RECTAL: No masses. No bleeding. GENITAL: Normal. EXTREMITIES: No clubbing, cyanosis, or edema. CENTRAL NERVOUS SYSTEM: Awake, alert, oriented x3. Cranial nerves II through XII are normal. Power 5/5 x4. Plantars are downgoing. ASSESSMENT: 1. Cocaine-induced chest pain. No myocardial infarction. Troponins are negative. The patient is a polysubstance abuser, smoker, and alcoholic. 2. Polysubstance drug intoxication and dependent. 3. Poorly controlled hypertension. 4. Bradycardia. PLAN: Admit. Detailed orders are written. Seen and examined. José Mccartney MD
[2019-04-07 08:08] VITALS: TEMP 99.3
[2019-04-07 10:13] VITALS: BP 166/88; PULSE 76
[2019-04-07] MEDS: Aspirin 325 mg EC Tablets PO SCH (11:00)
[2019-04-07] MEDS: Enoxaparin 40 mg Syringe SC SCH (11:00)
--- NOTE | 2019-04-07 11:46 | PCM.PSYCH ---
Initial Psychiatric Evaluation - Initial Psychiatric Evaluation Type of Admission: Voluntary Legal Status: Capacity History of Present Illness and Precipitating Events: 43 year old male presents to the ED c/o new onset chest pain associated with headache and left periorbital pain that started today at 21:00. Patient currently taking 3 HTN medications, missed his dose yesterday. Patient reports using heroin and cocaine abuse, his last use was around 19L00. Patient denies fever, chills, nausea, vomit, SOB. Patient reports history of TIA one year ago with no residual deficit. 43 year old male presents to the ED c/o new onset chest pain associated with headache and left periorbital pain that started today at 21:00. Patient currently taking 3 HTN medications, missed his dose yesterday. Patient reports using heroin and cocaine abuse, Current Medications: Active Medications Generic Name Dose Route Start Last Admin Trade Name Freq PRN Reason Stop Dose Admin Amlodipine Besylate 10 mg 04/05/19 10:00 04/07/19 08:09 Norvasc PO 10 mg DAILY [facility] Administration Aspirin 325 mg 04/05/19 10:00 04/06/19 10:00 Ecotrin PO 325 mg DAILY [facility] Administration Duloxetine HCl 60 mg 04/05/19 10:00 04/06/19 09:59 Cymbalta PO 60 mg DAILY [facility] Administration Enoxaparin Sodium 40 mg 04/05/19 10:00 04/06/19 10:01 Lovenox SC Not Given DAILY [facility] Fluphenazine HCl 5 mg 04/05/19 10:00 04/06/19 18:29 Prolixin PO 5 mg BID [facility] Administration Hydrochlorothiazide 25 mg 04/05/19 10:00 04/07/19 08:09 Hydrodiuril PO 25 mg DAILY [facility] Administration Lorazepam 0.5 mg 04/05/19 18:12 04/07/19 08:45 Ativan IVP 0.5 mg Q6H PRN Administration Anxiety Rosuvastatin Calcium 5 mg 04/05/19 22:00 04/06/19 21:29 Crestor PO 5 mg HS [facility] Administration Trazodone HCl 100 mg 04/05/19 05:23 04/07/19 01:19 Desyrel PO 100 mg HS PRN Administration Insomnia Past Psychiatric History - Past Psychiatric History Pertinent Medical Hx (Current Medical&Sleep Prob, Allergies): Allergies Allergy/AdvReac Type Severity Reaction Status Date / Time No Known Allergies Allergy Unverified 04/05/19 02:42 Lisinopril [Zestril] 10 mg PO DAILY 11/07/18 amLODIPine [Norvasc] 10 mg PO DAILY 11/07/18 DULoxetine [Cymbalta] 60 mg PO DAILY #30 ecc 11/14/18 fluPHENAZine [Prolixin] 5 mg PO BID #60 tab 11/14/18 traZODone [Desyrel] 100 mg PO HS PRN #30 tab 11/14/18 hydroCHLOROthiazide [Hydrodiuril] 25 mg PO DAILY 04/05/19
[2019-04-07] MEDS ORDERED: Aluminum Hydroxide/Magnesium Hydroxide Susp (30 mL) PO PRN (12:20)
--- NOTE | 2019-04-07 13:02 | CARD ---
APPROVED REPORT Date of service: 04/05/2019 EXAM: Two-dimensional and M-mode echocardiogram with Doppler and color Doppler. Other Information Quality : GoodRhythm : NSR INDICATION Cardiomyopathy Chest Pain 2D DIMENSIONS IVSd1.9 (0.7-1.1cm)Aortic Root (2D)3.8 (2.0-3.7cm) LVDd3.9 (3.9-5.9cm)PWd2.0 (0.7-1.1cm) LA Dvqojx30 (18-58mL) M-Mode DIMENSIONS Left Atrium (MM)4.13 (2.5-4.0cm)IVSd1.91 (0.7-1.1cm) Aortic Root3.95 (2.2-3.7cm)LVDd4.55 (4.0-5.6cm) Aortic Cusp Exc.2.36 (1.5-2.0cm)PWd2.25 (0.7-1.1cm) FS (%) 46 %LVDs2.44 (2.0-3.8cm) LVEF (%)78 (>50%) Aortic Valve AoV Peak Apvtrava399.6cm/Timbo Peak GR.7mmHg Mitral Valve MV E Ecyagdnh24.8cm/sMV A Evoaxozu99.3cm/sE/A ratio1.0 TDI Lateral E' Peak V6.74cm/sMedial E' Peak V4.48cm/sE/Lateral E'8.6 E/Medial E'12.9 Tricuspid Valve TR Peak Otfjvpbo504uh/sTR Peak Gr.35beMvYFYQ65epHz LEFT VENTRICLE The left ventricle is normal size. There is severe concentric left ventricular hypertrophy. The Ejection Fraction is >70%. There is normal LV segmental wall motion. Transmitral Doppler flow pattern is Grade II-pseudonormal filling dynamics. RIGHT VENTRICLE The right ventricle is normal size. The right ventricular systolic function is normal. ATRIA The left atrium is mildly dilated. The right atrium size is normal. The interatrial septum is intact with no evidence for an atrial septal defect. AORTIC VALVE The aortic valve is normal in structure. No aortic regurgitation is present. MITRAL VALVE The mitral valve is normal in structure. Mitral regurgitation is trace. TRICUSPID VALVE The tricuspid valve is normal in structure. There is mild tricuspid regurgitation. Right ventricular systolic pressure is estimated at 40 mmHg. There is mild pulmonary hypertension. PULMONIC VALVE The pulmonary valve is normal in structure. GREAT VESSELS The aortic root is normal in size. The IVC is normal in size and collapses >50% with inspiration. PERICARDIAL EFFUSION There is no pericardial effusion. <Conclusion> The left ventricle is normal size. There is severe concentric left ventricular hypertrophy. The Ejection Fraction is >70%. There is normal LV segmental wall motion. Transmitral Doppler flow pattern is Grade II-pseudonormal filling dynamics. The left atrium is mildly dilated. There is mild tricuspid regurgitation. Right ventricular systolic pressure is estimated at 40 mmHg. There is mild pulmonary hypertension. The aortic root is normal in size. The IVC is normal in size and collapses >50% with inspiration. There is no pericardial effusion.
--- NOTE | 2019-04-07 13:38 | CARD ---
APPROVED REPORT Date of service: 04/05/2019 EKG Measurement Heart [id number] <Conclusion> Normal sinus rhythm Biatrial enlargement Left ventricular hypertrophy T wave abnormality, consider lateral ischemia Prolonged QT Abnormal ECG
--- NOTE | 2019-04-08 03:58 | CP.PCM.DIS ---
Provider - Provider Date of Admission: 04/05/19 05:21 Attending physician: José Mccartney MD Consults: 04/05/19 11:37 Cardiology Consult Routine Comment: Consulting Provider: Braulio Lopez Consulting Physician: Braulio Lopez Reason for Consult: chest pain 04/05/19 18:12 Psychiatry Consult Routine Comment: Consulting Provider: Leobardo Klein Consulting Physician: Leobardo Klein Reason for Consult: Substance abuse Time Spent in preparation of Discharge (in minutes): 30 Hospital Course - Lab Results Lab Results: Most Recent Lab Values WBC 4.3 K/uL (4.8-10.8) L 04/06/19 07:54 RBC 4.82 Mil/uL (4.40-5.90) 04/06/19 07:54 Hgb 14.3 g/dL (12.0-18.0) 04/06/19 07:54 Hct 42.4 % (35.0-51.0) 04/06/19 07:54 MCV 87.8 fL (80.0-94.0) 04/06/19 07:54 MCH 29.7 pg (27.0-31.0) 04/06/19 07:54 MCHC 33.8 g/dL (33.0-37.0) 04/06/19 07:54 RDW 14.2 % (11.5-14.5) 04/06/19 07:54 Plt Count 223 K/uL (130-400) 04/06/19 07:54 MPV 8.3 fL (7.2-11.7) 04/06/19 07:54 Neut % (Auto) 56.3 % (50.0-75.0) 04/06/19 07:54 Lymph % (Auto) 31.2 % (20.0-40.0) 04/06/19 07:54 Tyler % (Auto) 10.3 % (0.0-10.0) H 04/06/19 07:54 Eos % (Auto) 1.6 % (0.0-4.0) 04/06/19 07:54 Baso % (Auto) 0.6 % (0.0-2.0) 04/06/19 07:54 Neut # (Auto) 2.4 K/uL (1.8-7.0) 04/06/19 07:54 Lymph # (Auto) 1.3 K/uL (1.0-4.3) 04/06/19 07:54 Tyler # (Auto) 0.4 K/uL (0.0-0.8) 04/06/19 07:54 Eos # (Auto) 0.1 K/uL (0.0-0.7) 04/06/19 07:54 Baso # (Auto) 0.0 K/uL (0.0-0.2) 04/06/19 07:54 Sodium 140 mmol/L (132-148) 04/06/19 07:55 Potassium 3.5 mmol/L (3.6-5.2) L 04/06/19 07:55 Chloride 101 mmol/L (98-107) 04/06/19 07:55 Carbon Dioxide 31 mmol/L (22-30) H 04/06/19 07:55 Anion Gap 12 (10-20) 04/06/19 07:55 BUN 22 mg/dL (9-20) H 04/06/19 07:55 Creatinine 1.4 mg/dL (0.8-1.5) 04/06/19 07:55 Est GFR ( Amer) > 60 04/06/19 07:55 Est GFR (Non-Af Amer) 55 04/06/19 07:55 Random Glucose 97 mg/dL (75-110) 04/06/19 07:55 Calcium 8.8 mg/dl (8.6-10.4) 04/06/19 07:55 Total Bilirubin 0.5 mg/dL (0.2-1.3) 04/06/19 07:55 AST 47 U/L (17-59) 04/06/19 07:55 ALT 55 U/L (21-72) 04/06/19 07:55 Alkaline Phosphatase 74 U/L (38-126) 04/06/19 07:55 Total Creatine Kinase 374 U/L (55-170) H 04/05/19 17:06 CK-MB (Mass) 4.40 ng/mL (0.0-3.38) H 04/05/19 17:06 Troponin I 0.0340 ng/mL (0.00-0.120) 04/05/19 17:06 Total Protein 6.8 g/dL (6.3-8.3) 04/06/19 07:55 Albumin 3.6 g/dL (3.5-5.0) 04/06/19 07:55 Globulin 3.1 gm/dL (2.2-3.9) 04/06/19 07:55 Albumin/Globulin Ratio 1.2 (1.0-2.1) 04/06/19 07:55 Urine Opiates Screen Positive (NEGATIVE) H 04/05/19 03:33 Urine Methadone Screen Negative (NEGATIVE) 04/05/19 03:33 Ur Barbiturates Screen Negative (NEGATIVE) 04/05/19 03:33 Ur Phencyclidine Scrn Negative (NEGATIVE) 04/05/19 03:33 Ur Amphetamines Screen Negative (NEGATIVE) 04/05/19 03:33 U Benzodiazepines Scrn Negative (NEGATIVE) 04/05/19 03:33 U Oth Cocaine Metabols Positive (NEGATIVE) H 04/05/19 03:33 U Cannabinoids Screen Negative (NEGATIVE) 04/05/19 03:33 Alcohol, Quantitative < 10 mg/dl (0-10) 04/05/19 03:33 Discharge Plan - Follow Up Plan Condition: GOOD Disposition: AGAINST MEDICAL ADVICE
== END 2019-04-07 14:00 | disposition left against medical advice (07) ==
LOC: C.ER 02:24 → C.6T 05:21
PROVIDERS: ADMIT Internal Medicine; ATTEND Internal Medicine
DX: T40.5X1A Poisoning by cocaine, accidental (unintentional), initial encounter (principal); R07.2 Precordial pain; F14.10 Cocaine abuse, uncomplicated; F11.10 Opioid abuse, uncomplicated; F17.200 Nicotine dependence, unspecified, uncomplicated; I10 Essential (primary) hypertension; Z86.73 Personal history of transient ischemic attack (TIA), and cerebral infarction without residual deficits; Z91.11 Patient's noncompliance with dietary regimen; F32.9 Major depressive disorder, single episode, unspecified; F41.9 Anxiety disorder, unspecified; R00.1 Bradycardia, unspecified; E78.5 Hyperlipidemia, unspecified; F10.20 Alcohol dependence, uncomplicated
CPT/HCPCS: 36415; 70450; 71045; 80053; 80320; 80324; 80345; 80346; 80349; 80353; 80358; 80361; 83992; 84484; 85025; 93005; 93306; 96374; 99285; G0378; J0360; J1650; J2060